=== PATIENT | male | born 1995 | race Caucasian/White ===

== ENCOUNTER 2019-09-19 15:29 | Emergency (ER) | payer OTHER ==
[~2019-09-19] VITALS: Ht 177.8 cm; Wt 51.0 kg
[~2019-09-19 15:29] MED LIST: NO HOME MEDS
[2019-09-19] MEDS ORDERED: tranexamic acid 100mg/ml inj. IV ONE (15:50)
[2019-09-19] MEDS ORDERED: ondansetron/PF 4mg/2ml inj IV ONE (15:50)
[2019-09-19] MEDS ORDERED: TRANEXAMIC ACID 1 GM IN NACL,ISO-OS 100 ML IV ONE (16:00)
[2019-09-19 16:05] LABS: BASOPHILS % (AUTO) 0.6 % (0-1); EOSINOPHILS # (AUTO) 0.1 X10'3 (0-0.9); EOSINOPHILS % (AUTO) 1.1 % (0-6); HEMATOCRIT 40.5 % (42.0-52.0); HEMOGLOBIN 13.9 g/dl (14.0-17.9); LYMPHOCYTES # (AUTO) 1.9 X10'3 (1.1-4.8); LYMPHOCYTES % (AUTO) 35.3 % (21-51); MEAN CORPUSCULAR HEMOGLOBIN 29.6 PG (27.0-31.0); MEAN CORPUSCULAR HGB CONC 34.3 g/dL (33.0-36.5); MEAN CORPUSCULAR VOLUME 86.3 FL (78-98); MEAN PLATELET VOLUME 7.3 FL (7.4-10.4); MONOCYTES # (AUTO) 0.4 X10'3 (0-0.9); MONOCYTES % (AUTO) 7.3 % (2-12); NEUTROPHILS # (AUTO) 3.1 X10'3 (1.8-7.7); NEUTROPHILS % (AUTO) 55.7 % (42-75); PLATELET COUNT 252 X10'3 (140-440); RED BLOOD COUNT 4.69 X10'6 (4.70-6.10); RED CELL DISTRIBUTION WIDTH 12.5 % (11.5-14.5); WHITE BLOOD COUNT 5.5 X10'3 (4.5-11.0)
[2019-09-19] MEDS ORDERED: normal saline 1000ML IV soln IVB ONE (16:15)
[2019-09-19 16:29] LABS: ALANINE AMINOTRANSFERASE 26 U/L (12-78); ALBUMIN 3.9 G/DL (3.4-5.0); ALKALINE PHOSPHATASE 57 IU/L (46-116); ANION GAP 8 (8-16); ASPARTATE AMINO TRANSFERASE 13 U/L (10-37); BILIRUBIN,TOTAL 0.6 MG/DL (0.1-1.0); BLOOD UREA NITROGEN 12 MG/DL (7-18); BUN/CREATININE RATIO 14.3 (5.4-32.0); CALCIUM 8.8 MG/DL (8.5-10.1); CHLORIDE 105 MMOL/L (99-107); CREATININE 0.84 MG/DL (0.60-1.10); GLUCOSE 101 MG/DL (70-104); POTASSIUM 3.3 MMOL/L (3.5-5.1); SODIUM 142 MMOL/L (135-145); TOTAL CARBON DIOXIDE 29.5 MMOL/L (24-32); TOTAL PROTEIN 7.7 G/DL (6.4-8.2); eGFR > 90 ML/MIN
[2019-09-19 17:54] VITALS: BP 116/60
== END 2019-09-19 17:56 | disposition home or self-care (01) ==
LOC: ER 15:30
DX: J95.830 Postprocedural hemorrhage of a respiratory system organ or structure following a respiratory system procedure (principal); G43.909 Migraine, unspecified, not intractable, without status migrainosus; Z98.890 Other specified postprocedural states; Z90.89 Acquired absence of other organs
CPT/HCPCS: 36415; 80053; 85025; 96365; 96375; 99283; J2405; J7030

== ENCOUNTER 2019-09-21 23:28 | Emergency (ER) | payer OTHER ==
[~2019-09-21] VITALS: Ht 177.8 cm; Wt 53.0 kg
[2019-09-21] MEDS ORDERED: normal saline 1000ML IV soln IVB ONE (23:40)
[2019-09-21] MEDS ORDERED: ondansetron/PF 4mg/2ml inj IV ONE (23:45)
[2019-09-21] MEDS ORDERED: tranexamic acid inj. 1,000 MG in normal saline 100ml IV soln 100 ML IV ONE (23:45)
[2019-09-22] MEDS ORDERED: phenylephrine 1% (X-tra strg) 15ml nasal spray NS ONE
[2019-09-22] MEDS ORDERED: tranexamic acid 100mg/ml inj. TP ONE
[2019-09-22 00:12] LABS: BASOPHILS % (AUTO) 0.4 % (0-1); EOSINOPHILS # (AUTO) 0.1 X10'3 (0-0.9); EOSINOPHILS % (AUTO) 0.7 % (0-6); HEMATOCRIT 39.6 % (42.0-52.0); HEMOGLOBIN 13.9 g/dl (14.0-17.9); LYMPHOCYTES # (AUTO) 2.2 X10'3 (1.1-4.8); LYMPHOCYTES % (AUTO) 27.5 % (21-51); MEAN CORPUSCULAR HEMOGLOBIN 30.4 PG (27.0-31.0); MEAN CORPUSCULAR VOLUME 86.8 FL (78-98); MEAN PLATELET VOLUME 7.1 FL (7.4-10.4); MONOCYTES # (AUTO) 0.5 X10'3 (0-0.9); MONOCYTES % (AUTO) 6.3 % (2-12); NEUTROPHILS # (AUTO) 5.1 X10'3 (1.8-7.7); NEUTROPHILS % (AUTO) 65.1 % (42-75); PLATELET COUNT 310 X10'3 (140-440); RED BLOOD COUNT 4.56 X10'6 (4.70-6.10); RED CELL DISTRIBUTION WIDTH 12.5 % (11.5-14.5); WHITE BLOOD COUNT 7.9 X10'3 (4.5-11.0)
--- NOTE | 2019-09-22 00:16 | NUR ---
Dr. Day at bedside attempting to stop bleeding. Patient has vomited 300ml bright red blood in emesis bags and suctioned 100ml bright red blood into suction canister.
[2019-09-22 00:20] LABS: ALANINE AMINOTRANSFERASE 25 U/L (12-78); ALBUMIN 4.1 G/DL (3.4-5.0); ALBUMIN/GLOBULIN RATIO 1.1 (1.1-1.5); ALKALINE PHOSPHATASE 62 IU/L (46-116); ANION GAP 9 (8-16); ASPARTATE AMINO TRANSFERASE 14 U/L (10-37); BILIRUBIN,TOTAL 0.4 MG/DL (0.1-1.0); BLOOD UREA NITROGEN 19 MG/DL (7-18); BUN/CREATININE RATIO 20.7 (5.4-32.0); CALCIUM 8.6 MG/DL (8.5-10.1); CHLORIDE 102 MMOL/L (99-107); CREATININE 0.92 MG/DL (0.60-1.10); GLUCOSE 99 MG/DL (70-104); POTASSIUM 3.3 MMOL/L (3.5-5.1); SODIUM 140 MMOL/L (135-145); TOTAL CARBON DIOXIDE 28.6 MMOL/L (24-32); eGFR > 90 ML/MIN
[2019-09-22] MEDS ORDERED: LIDOcaine 40mg/ml topical solution IH ONE (00:20)
[2019-09-22] MEDS ORDERED: racepinephrine 11.25mg/0.5ml nebule IH ONE (00:20)
--- NOTE | 2019-09-22 00:54 | NUR ---
400ml bright red blood obtained in emesis bag, 40ml in suction canister.
--- NOTE | 2019-09-22 01:33 | NUR ---
200ml bright red blood in emesis bag.
[2019-09-22 01:46] VITALS: BP 117/64
== END 2019-09-22 01:58 | disposition short-term general hospital (02) ==
LOC: ER 23:28
DX: J95.830 Postprocedural hemorrhage of a respiratory system organ or structure following a respiratory system procedure (principal); G43.909 Migraine, unspecified, not intractable, without status migrainosus; Z90.89 Acquired absence of other organs; Y83.8 Other surgical procedures as the cause of abnormal reaction of the patient, or of later complication, without mention of misadventure at the time of the procedure
CPT/HCPCS: 36415; 80053; 85025; 86885; 86900; 86901; 94640; 96365; 96375; 99285; J2001; J2405; J7030; 94760